=== PATIENT | female | born 1950 ===

== ENCOUNTER 2022-05-06 11:11 | Outpatient (CLI) | payer OTHER | END 2022-05-06 11:13 | disposition home or self-care (01) | LOC: SONOGRAMA 11:11 | PROVIDERS: ATTEND Pathology Anatomic Pathology & Clinical Pathology | DX: E04.1 Nontoxic single thyroid nodule (principal); E07.9 Disorder of thyroid, unspecified; D34 Benign neoplasm of thyroid gland; E04.9 Nontoxic goiter, unspecified ==